=== PATIENT | male | born 1945 | race Caucasian/White ===

== ENCOUNTER 2017-06-24 11:08 | Emergency (ER) | payer MEDICARE, BC ==
[2017-06-24 13:16] VITALS: BP 161/83
--- NOTE | 2017-06-24 13:55 | UC ---
Eye Complaint HPI - HPI Summary HPI Summary: Pt c/o waking this morning with right eye "glued " shut with yellow/green discharge and right eye redness and under eye swelling - History of Current Complaint Chief Complaint: UCEye Stated Complaint: RIGHT EYE COMPLAINT Time Seen by Provider: 06/24/17 13:24 Hx Obtained From: Patient Onset/Duration: Sudden Onset, Lasting Hours, Still Present Timing: Constant Severity Initially: Mild Severity Currently: Mild Pain Intensity: 0 Pain Scale Used: 0-10 Numeric Location of Injury: Conjunctiva, Eye Lid (lower) Aggravating Factor(s): Nothing Alleviating Factor(s): Nothing Associated Signs And Symptoms: Positive: Drainage (Purulent) - right eye - Risk Factors Penetrating Injury Risk Factor: Negative Acute Glaucoma Risk Factors: Negative Optic Artery Occlusion Risk Factors: Negative - Allergies/Home Medications Allergies/Adverse Reactions: Allergies Allergy/AdvReac Type Severity Reaction Status Date / Time No Known Allergies Allergy Verified 06/24/17 13:15 Home Medications: Home Medications Aspirin [Aspirin 81 MG TAB] 81 mg PO DAILY 06/24/17 [History Confirmed 06/24/17] Clopidogrel TAB* [Plavix TAB*] 75 mg PO DAILY 06/24/17 [History Confirmed ] Ezetimibe-Simvastatin [Vytorin 10-10 mg] 1 tab PO DAILY 06/24/17 [History Confirmed 06/24/17] Metoprolol Tartrate TAB* [Lopressor TAB*] 50 mg PO DAILY 06/24/17 [History Confirmed 06/24/17] Multiple Vitamin [Multi Vitamin] 1 tab PO DAILY 06/24/17 [History Confirmed ] Campo-3 Fatty Acids [Fish Oil] 1,000 mg PO BID 06/24/17 [History Confirmed 06/24] Potassium Chloride Microencaps [Klor-Con M10] 10 meq PO DAILY 06/24/17 [History Confirmed 06/24/17] Terazosin CAP* [Hytrin CAP 5 MG*] 5 mg PO BEDTIME 06/24/17 [History Confirmed ] Warfarin TAB(*) [Coumadin TAB(*)] 2.5 mg PO DAILY 06/24/17 [History Confirmed ] PMH/Surg Hx/FS Hx/Imm Hx Previously Healthy: Yes Endocrine History: Dyslipidemia Cardiovascular History: Hypertension - Surgical History Surgical History: Yes Surgery Procedure, Year, and Place: cardiac stent 2002, R kidney removal, renal annyuism - Family History Known Family History: Positive: Cardiac Disease - Social History Occupation: Retired Lives: With Family Alcohol Use: Daily Substance Use Type: None Smoking Status (MU): Never Smoked Tobacco Have You Smoked in the Last Year: No Review of Systems Constitutional: Negative Skin: Negative Eyes: Drainage - right, Eye Redness - right eye, Photophobia - right eye ENT: Negative Respiratory: Negative Cardiovascular: Negative Gastrointestinal: Negative Genitourinary: Negative Motor: Negative Neurovascular: Negative Musculoskeletal: Negative Neurological: Negative Psychological: Negative Is Patient Immunocompromised?: No All Other Systems Reviewed And Are Negative: Yes Physical Exam Triage Information Reviewed: Yes Appearance: Well-Appearing Vital Signs: Initial Vital Signs Temp 98.4 F 06/24/17 13:04 Resp 16 06/24/17 13:04 BP 161/83 06/24/17 13:04 Pulse Ox 100 06/24/17 13:04 Vital Signs Reviewed: Yes Eye Exam: Other Eyes: Positive: Conjunctiva Inflamed, Discharge ENT Exam: Normal Dental Exam: Normal Neck exam: Normal Respiratory Exam: Normal Musculoskeletal Exam: Normal Psychological Exam: Normal Skin Exam: Normal Eye Complaint Course/Dx - Differential Dx/Diagnosis Differential Diagnosis/HQI/PQRI: Conjunctivitis, Foreign Body Provider Diagnoses: conjunctivitis Discharge - Discharge Plan Condition: Stable Disposition: HOME Prescriptions: Polymyx/Trimethoprim OPTH* [Polytrim OPHTH*] 2 drop RIGHT EYE Q8H #1 btl Patient Education Materials: Conjunctivitis (ED) Referrals: [facility] [Outside]
== END 2017-06-24 13:34 | disposition home or self-care (01) ==
LOC: UCCORT 11:08
DX: H10.31 Unspecified acute conjunctivitis, right eye (principal); E78.5 Hyperlipidemia, unspecified; I10 Essential (primary) hypertension; Z79.01 Long term (current) use of anticoagulants; Z79.82 Long term (current) use of aspirin; Z95.5 Presence of coronary angioplasty implant and graft
CPT/HCPCS: 99202; G0463